=== PATIENT | male | born 1975 | race Two or more races ===

== ENCOUNTER 2024-11-22 13:52 | Emergency (ER) | payer BC ==
[~2024-11-22] VITALS: Ht 182.9 cm; Wt 98.0 kg
[2024-11-22 13:59] VITALS: BP 138/90; PULSE 100; RESP 16; TEMP 36.9; O2SAT 98
[2024-11-22 15:15] LABS: BASOPHILS % 0.3 % (0.0-2.0); EOSINOPHILS % 0.4 % (0.0-5.0); HEMATOCRIT. 45.1 % (42.0-52.0); LYMPHOCYTES % 7.6 % (20.0-50.0); MEAN CORPUSCULAR HEMOGLOBIN 31.2 pg (28.0-32.0); MEAN CORPUSCULAR HGB CONC 33.2 g/dL (31.0-37.0); MEAN PLATELET VOLUME 7.9 fl (7.4-10.4); MONOCYTES % 5.3 % (2.0-8.0); NEUTROPHILS % 86.4 % (40.0-76.0); PLATELET 248 x1000/uL (130-400); RED CELL DISTRIBUTION WIDTH 13.4 % (11.6-14.6); WHITE BLOOD COUNT 16.4 x1000/uL (4.5-11.0)
[2024-11-22 15:23] LABS: CARBON DIOXIDE 27 mEq/L (21-32); CHLORIDE 102 mEq/L (98-107); POTASSIUM 4.1 mEq/L (3.5-5.1); SODIUM 138 mEq/L (136-145)
[2024-11-22 15:29] LABS: CREATININE 1.1 mg/dL (0.6-1.3); GLUCOSE 107 mg/dL (70-105); TROPONIN I HIGH SENSITIVITY 19 ng/L (3.0-53); UREA NITROGEN BLOOD 13 mg/dL (9-23)
[2024-11-22 15:32] LABS: DIFFERENTIAL COMMENT 1
[2024-11-22 15:55] LABS: ETHANOL BLOOD < 10 mg/dL (<10)
== END 2024-11-22 20:42 | disposition home or self-care (01) ==
LOC: ER 13:52
DX: R42 Dizziness and giddiness (principal); R53.1 Weakness; I10 Essential (primary) hypertension; Z79.899 Other long term (current) drug therapy
CPT/HCPCS: 36415; 80048; 80320; 84484; 85025; 93005; 99284; G0480